=== PATIENT | male | born 1995 | race Caucasian/White ===

== ENCOUNTER 2024-09-05 14:56 | Emergency (ER) | payer MEDICARE, OTHER ==
[~2024-09-05] VITALS: Ht 167.6 cm; Wt 79.4 kg
[~2024-09-05 14:56] MED LIST: Paxlovid PO; [UNRECOGNIZED DRUG - OTHER]
[2024-09-05] MEDS: AMOXICILLIN-CLAVUL 875-125MG TABLET PO ONE (15:42)
[2024-09-05] MEDS ORDERED: AMOXICILLIN-CLAVUL 875-125MG TABLET ONE (16:03)
[2024-09-05] MEDS ORDERED: AMOX-430 PO (16:34)
[2024-09-05] MEDS ORDERED: TRAM50TA2 PO (16:34)
[2024-09-05 17:22] VITALS: BP 129/89; O2SAT 98
== END 2024-09-05 16:43 | disposition home or self-care (01) ==
LOC: ER 14:56
DX: S81.032A Puncture wound without foreign body, left knee, initial encounter (principal); Z79.899 Other long term (current) drug therapy; W54.0XXA Bitten by dog, initial encounter; Y93.89 Activity, other specified; Y92.89 Other specified places as the place of occurrence of the external cause; Y99.8 Other external cause status
CPT/HCPCS: A4606; A4663

== ENCOUNTER 2024-09-09 09:24 | Emergency (ER) | payer MEDICARE ==
[~2024-09-09] VITALS: Ht 167.6 cm; Wt 81.6 kg
[~2024-09-09 09:24] MED LIST changes: +AMOX-430 PO; +TRAM50TA2 PO
[2024-09-09] MEDS: IV NORMAL SALINE 1000 ML BAG IV ONE (10:13)
[2024-09-09] MEDS ORDERED: ACETAMINOPHEN 500 MG TABLET ONE (10:24)
[2024-09-09] MEDS: ACETAMINOPHEN 500 MG TABLET PO ONE (10:24)
[2024-09-09 10:25] LABS: BASOPHILS % (AUTO) 0.4 % (0.0-2.0); EOSINOPHILS % (AUTO) 0.2 % (0.0-7.0); HEMATOCRIT 43.8 % (36.7-47.1); HEMOGLOBIN 15.1 g/dL (12.5-16.3); LYMPHOCYTES # (AUTO) 0.7 K/uL (0.8-4.8); LYMPHOCYTES % (AUTO) 12.7 % (20.5-51.5); MEAN CORPUSCULAR HEMOGLOBIN 29.3 uug (23.8-33.4); MEAN CORPUSCULAR HGB CONC 35 g/dL (32.5-36.3); MEAN CORPUSCULAR VOLUME 84.9 fL (73.0-96.2); MONOCYTES # (AUTO) 0.9 K/uL (0.1-1.30); MONOCYTES % (AUTO) 17.1 % (0.0-11.0); NEUTROPHILS # (AUTO) 3.8 K/uL (1.8-8.9); NEUTROPHILS % (AUTO) 69.6 % (38.5-71.5); PLATELET COUNT (AUTO) 280 K/uL (152-348); RED BLOOD CELL COUNT(AUTO) 5.16 MIL/uL (4.06-5.63); RED CELL DISTRIBUTION WIDTH 13.2 % (12.1-16.2); WHITE BLOOD COUNT (AUTO) 5.5 K/uL (3.6-10.2)
[2024-09-09 10:37] LABS: DIFFERENTIAL COMMENT 1
[2024-09-09 10:41] LABS: CALCIUM 9.2 mg/dL (8.5-10.1); CARBON DIOXIDE 23 mmol/L (21-32); CHLORIDE 100 mmol/L (98-107); CREATININE 1.3 mg/dL (0.6-1.3); GLUCOSE 103 mg/dL (74-106); POTASSIUM 3.5 mmol/L (3.5-5.1); SODIUM SERUM 140 mmol/L (136-145); UREA NITROGEN, BLOOD 11 mg/dL (7-18)
[2024-09-09 10:48] LABS: ALANINE AMINOTRANSFERASE 121 U/L (16-63); ALBUMIN 4.4 g/dL (3.4-5.0); ALKALINE PHOSPHATASE 94 U/L (50-136); ASPARTATE AMINOTRANSFERASE 54 U/L (15-37); BILIRUBIN,DIRECT 0.1 mg/dL (0.0-0.2); BILIRUBIN,TOTAL 0.4 mg/dL (0.2-1.0); TOTAL PROTEIN, SERUM 8.9 g/dL (6.4-8.2)
[2024-09-09 13:07] VITALS: BP 121/78; TEMP 98.7; O2SAT 98
[2024-09-09 13:26] LABS: LYMPHOCYTES % (MANUAL) 13 % (20-40); MONOCYTES % (MANUAL) 17 % (2-10); NEUTROPHILS % (MANUAL) 70 % (42-75); PLATELET ESTIMATE ADEQUATE
== END 2024-09-09 13:12 | disposition home or self-care (01) ==
LOC: ER 09:27
DX: J10.1 Influenza due to other identified influenza virus with other respiratory manifestations (principal); Z79.899 Other long term (current) drug therapy; Z20.822 Contact with and (suspected) exposure to COVID-19; Z60.2 Problems related to living alone
CPT/HCPCS: 99285; 96360; 71045; 96361; 87426; 87804 ×2; 80076; 80048; 85025; 84145; 85730; 87040 ×2; 84484; 36415; 93005; 83605; 85007; J7040 ×2; 70030-TC; A4606; A4663; A9150